=== PATIENT | male | born 2000 | race Caucasian/White ===

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

== ENCOUNTER 2022-06-29 08:00 | Outpatient (CLI) | payer BC | END 2022-06-29 23:59 | disposition home or self-care (01) | LOC: LAB 08:00 | PROVIDERS: ATTEND Physician Assistant | DX: K62.89 Other specified diseases of anus and rectum (principal) | CPT/HCPCS: 81599; 87070; 87077; 87181; 87205; 87255; 87491; 87591 ==